=== PATIENT | male | born 1965 | race Caucasian/White ===

== ENCOUNTER 2022-10-31 07:25 | Emergency (ER) | payer BC, OTHER ==
[2022-10-31 07:55] VITALS: BP 136/96; PULSE 77
[2022-10-31] MEDS ORDERED: cefTRIAXone 2 GM in Sodium Chloride 0.9% 100 ML IV ONE (08:19)
[2022-10-31] MEDS ORDERED: Sodium Chloride 0.9% 10 ML Syringe FLUSH PRN (08:19)
[2022-10-31] MEDS ORDERED: HYDROmorphone 1 MG/ML Syringe IVPUSH ONE (08:41)
== END 2022-10-31 10:52 | disposition home or self-care (01) ==
LOC: JD.ED 07:25
DX: L03.031 Cellulitis of right toe (principal); E78.00 Pure hypercholesterolemia, unspecified; Z79.899 Other long term (current) drug therapy
CPT/HCPCS: 36415; 73660; 80053; 83605; 85025; 86140; 96365; 96375; 99283; J0696; J1170; J3490

== ENCOUNTER 2023-02-21 20:18 | Emergency (ER) | payer BC ==
[2023-02-21 22:39] VITALS: BP 118/79; PULSE 91
== END 2023-02-21 22:10 | disposition home or self-care (01) ==
LOC: JD.ED 20:18
DX: S62.646A Nondisplaced fracture of proximal phalanx of right little finger, initial encounter for closed fracture (principal); K21.9 Gastro-esophageal reflux disease without esophagitis; Z79.899 Other long term (current) drug therapy; X50.1XXA Overexertion from prolonged static or awkward postures, initial encounter; Y93.64 Activity, baseball
CPT/HCPCS: 29130; 73140-26-F9; 73140-F9; 99283

== ENCOUNTER 2024-10-05 14:21 | Emergency (ER) | payer BC ==
[2024-10-05] MEDS: Bacitracin Oint 15 GM Tube TOP ONE (16:15)
[2024-10-05 16:31] VITALS: BP 166/108; PULSE 69
== END 2024-10-05 16:22 | disposition home or self-care (01) ==
LOC: JD.ED 14:21
DX: S60.456A Superficial foreign body of right little finger, initial encounter (principal); E78.00 Pure hypercholesterolemia, unspecified; K21.9 Gastro-esophageal reflux disease without esophagitis; Z79.899 Other long term (current) drug therapy; W45.8XXA Other foreign body or object entering through skin, initial encounter
CPT/HCPCS: 99283; A9270